=== PATIENT | female | born 1960 | race Hispanic/Latino ===

== ENCOUNTER 2017-03-07 11:44 | Inpatient (IN) | payer OTHER ==
--- NOTE | 2017-03-07 12:07 | ED PDOC ---
Arrival/HPI - General Chief Complaint: Abdominal Pain Time Seen by Provider: 03/07/17 12:07 Historian: Patient - History of Present Illness Narrative History of Present Illness (Text): 03/07/17 12:07 This 56 yo female presents to this ED c/o Epigastric pain, and elevated Lipase. Patient stated she has been having epigastric pain x 4 weeks. Pain has worsen last 3 days. Patient stated she had a normal CT scan Of abdomen and pelvis last week. Patient brought lab result from yesterday which shows Lipase at 922. Patient stated she was recommended to come to ED by her PMD for revaluation. Denies sob, cp, rectal; bleeding, rash, fever, or abnormal gait. PMD: Dr. Mayer Time/Duration: < month Quality: Aching Context: Home Past Medical History - Provider Review Nursing Documentation Reviewed: Yes - Reproductive Menopause: Yes - Endocrine/Metabolic Hx Hypothyroidism: Yes - Gastrointestinal Hx Gastrointestinal Ulcer: Yes Hx Irritable Bowel: Yes - Psychiatric Hx Substance Use: No - Surgical History Hx Orthopedic Surgery: Yes - Anesthesia Hx Anesthesia: Yes Hx Anesthesia Reactions: No Family/Social History - Physician Review Nursing Documentation Reviewed: Yes Family/Social History: No Known Family HX Smoking Status: Unknown If Ever Smoked Hx Alcohol Use: No Hx Substance Use: No Allergies/Home Meds Allergies/Adverse Reactions: Allergies No Known Allergies Allergy (Verified 03/07/17 11:56) Home Medications: Home Meds Medication Instructions Recorded Confirmed ALPRAZolam [Xanax] 1 mg PO TID 03/07/17 03/07/17 Conjugated Estrogens [Premarin] 0 mg PO 03/07/17 LORazepam [Ativan] 0.5 mg PO BID 03/07/17 03/07/17 LORazepam [Ativan] 1 mg PO HS 03/07/17 03/07/17 Levothyroxine [Synthroid] 50 mcg PO DAILY 03/07/17 03/07/17 Omeprazole 20 mg PO DAILY 03/07/17 03/07/17 Ondansetron HCl [Zofran] 4 mg PO PRN PRN 03/07/17 03/07/17 Temazepam [Restoril] 30 mg PO HS 03/07/17 03/07/17 Venlafaxine [Effexor XR] 150 mg PO DAILY 03/07/17 03/07/17 Review of Systems - Review of Systems Constitutional: Normal. absent: Fatigue, Weight Change, Fevers Eyes: Normal ENT: Normal Respiratory: Normal. absent: SOB, Cough, Sputum Cardiovascular: Normal Gastrointestinal: Abdominal Pain, Nausea Genitourinary Female: Normal Musculoskeletal: Normal Skin: Normal Neurological: Normal Endocrine: Normal Hemo/Lymphatic: Normal Psychiatric: Normal Physical Exam Vital Signs Temp Pulse Resp BP Pulse Ox 03/07/17 13:00 138/78 03/07/17 11:50 98.9 F 104 H 20 130/71 96 Temperature: Afebrile Blood Pressure: Normal Pulse: Regular Respiratory Rate: Normal Appearance: Positive for: Well-Appearing, Non-Toxic, Comfortable Pain Distress: None Mental Status: Positive for: Alert and Oriented X 3 - Systems Exam Head: Present: Atraumatic, Normocephalic Pupils: Present: PERRL Extroacular Muscles: Present: EOMI Conjunctiva: Present: Normal Mouth: Present: Moist Mucous Membranes Neck: Present: Normal Range of Motion Respiratory/Chest: Present: Clear to Auscultation, Good Air Exchange. No: Respiratory Distress, Accessory Muscle Use Cardiovascular: Present: Regular Rate and Rhythm, Normal S1, S2. No: Murmurs Abdomen: Present: Tenderness (Mild epigatric tenderness), Normal Bowel Sounds. No: Distention, Peritoneal Signs, Guarding, Hernias Back: Present: Normal Inspection. No: CVA Tenderness Upper Extremity: Present: Normal Inspection. No: Cyanosis, Edema Lower Extremity: Present: Normal Inspection. No: Edema Neurological: Present: GCS=15, CN II-XII Intact, Speech Normal Skin: Present: Warm, Dry, Normal Color. No: Rashes Psychiatric: Present: Alert, Oriented x 3 Medical Decision Making ED Course and Treatment: 03/07/17 15:37 I spoke with DAVI Bernard regarding elevated Lipase, and intractable abdominal pain. He agrees with plan for observation Re-evaluation Time: 15:37 Reassessment Condition: Re-examined, Improving,but remains with symptoms - Lab Interpretations Lab Results: 03/07/17 12:45 03/07/17 12:45 Lab Results 03/07/17 13:20: Urine Color Yellow, Urine Appearance Clear, Urine pH 6.5, Ur Specific [place] 1.025, Urine Protein Negative, Urine Glucose (UA) Negative, Urine Ketones Trace H, Urine Blood Negative, Urine Nitrate Negative, Urine Bilirubin Negative, Urine Urobilinogen 0.2, Ur Leukocyte Esterase Negative 03/07/17 12:45: WBC 6.0, RBC 4.44, Hgb 13.0, Hct 37.5, MCV 84.5, MCH 29.3, MCHC 34.7, RDW 12.3, Plt Count 255, MPV 8.8, Gran % 54.7, Lymph % (Auto) 33.9, [place] % (Auto) 7.2 H, Eos % (Auto) 3.5, Baso % (Auto) 0.7, Gran # 3.25, Lymph # 2.0, [place] # 0.4, Eos # 0.2, Baso # 0.04, PT 10.8, INR 1.00, APTT 27.1, Sodium 140, Potassium 4.4, Chloride 105, Carbon Dioxide 25, Anion Gap 14, BUN 11, Creatinine 0.7, Est GFR ( Amer) > 60, Est GFR (Non-Af Amer) > 60, Random Glucose 95, Calcium 9.8, Total Bilirubin 0.5, AST 20, ALT 23, Alkaline Phosphatase 53, Total Protein 7.6, Albumin 4.1, Globulin 3.6, Albumin/Globulin Ratio 1.1, Amylase 150 H, Lipase 727 H I have reviewed the lab results: Yes Interpretation: Abnormal lab values (Elevated Lipase) - RAD Interpretation Narrative RAD Interpretations (Text): 03/07/17 16:02 Accession No. : [id number] Patient Name / ID : CADEN AN / [id number] Exam Date : 03/07/2017 12:42:16 ( Approved ) Study Comment : Sex / Age : F / 56Y Creator : Nolan Gil MD Dictator : Nolan Gil MD [place] Supervisor : Emergency Dispatcher : Nolan Gil MD Approver2 : Report Date : 03/07/2017 15:00:59 My Comment : HISTORY: cough COMPARISON: No prior. FINDINGS: LUNGS: No active pulmonary disease. PLEURA: No significant pleural effusion identified, no pneumothorax apparent. CARDIOVASCULAR: Normal. OSSEOUS STRUCTURES: No significant abnormalities. VISUALIZED UPPER ABDOMEN: Normal. OTHER FINDINGS: None. IMPRESSION: No active disease. Radiology Orders: 03/07/17 12:26 CHEST PORTABLE [RAD] Stat - Medication Orders Current Medication Orders: Discontinued Medications Hydromorphone HCl (Dilaudid) 1 mg IVP STAT STA Stop: 03/07/17 15:13 Last Admin: 03/07/17 15:22 Dose: 1 MG IVP Administration Document 03/07/17 15:22 SF (Rec: 03/07/17 15:22 [email or web address] Charges for Administration # of IVP Administrations 1 Sodium Chloride (Sodium Chloride 0.9%) 1,000 mls @ 999 mls/hr IV .Q1H1M STA Stop: 03/07/17 13:28 Last Admin: 03/07/17 13:01 Dose: 999 MLS/HR eMAR Start Stop Document 03/07/17 13:01 SF (Rec: 03/07/17 13:01 [email or web address]) Intravenous Solution Start Date 03/07/17 Start Time 13:01 End Date 03/07/17 End time 14:02 Total Infusion Time 61 Famotidine (Pepcid 20mg/50ml Premix) 50 mls @ 100 mls/hr IVPB STAT STA Stop: 03/07/17 12:58 Last Admin: 03/07/17 13:00 Dose: 100 MLS/HR eMAR Start Stop Document 03/07/17 13:00 SF (Rec: 03/07/17 13:00 [email or web address]) Intravenous Solution Start Date 03/07/17 Start Time 13:00 End Date 03/07/17 End time 13:30 Total Infusion Time 30 Morphine Sulfate (Morphine) 4 mg IVP STAT STA Stop: 03/07/17 12:30 Last Admin: 03/07/17 13:01 Dose: 4 MG MAR Pain Assessment Document 03/07/17 13:01 SF (Rec: 03/07/17 13:01 [email or web address] Pain Reassessment Is this a pain reassessment? Yes Sleep Is patient sleeping during reassessment? No Presence of Pain Presence of Pain Yes Pain Scale Used Pain Scale Used Numeric IVP Administration Document 03/07/17 13:01 (Rec: 03/07/17 13:01 [email or web address]) Charges for Administration # of IVP Administrations 1 Ondansetron HCl (Zofran Inj) 4 mg IVP STAT STA Stop: 03/07/17 12:30 Last Admin: 03/07/17 13:01 Dose: 4 MG IVP Administration Document 03/07/17 13:01 (Rec: 03/07/17 13:01 [facility] Charges for Administration # of IVP Administrations 1 Disposition/Present on Arrival - Present on Arrival Any Indicators Present on Arrival: No History of DVT/PE: No History of Uncontrolled Diabetes: No Urinary Catheter: No History of Decub. Ulcer: No History Surgical Site Infection Following: None - Disposition Have Diagnosis and Disposition been Completed?: Yes Diagnosis: Pancreatitis, Intractable abdominal pain Disposition: HOSPITALIZED Disposition Time: 15:39 Patient Plan: Observation Patient Problems: Current Active Problems Problem Status Diagnosed Intractable abdominal pain Acute Pancreatitis Acute Condition: GOOD Referrals: PCP,NO [Primary Care Provider] - Follow up with primary
[2017-03-07] MEDS ORDERED: Sodium Chloride 0.9% 1,000 ML IV STA ×2 (12:28→16:09)
[2017-03-07] MEDS ORDERED: Morphine 4 mg/ml ISec IVP STA (12:29)
[2017-03-07] MEDS ORDERED: Famotidine 20mg/50ml 50 ML IVPB STA (12:29)
[2017-03-07 12:56] LABS: ADD MANUAL DIFF? NO
[2017-03-07 13:01] LABS: BASO # 0.04 K/mm3 (0.0-2.0); BASO % 0.7 % (0.0-3.0); EOS # 0.2 (0.0-0.7); EOS % 3.5 % (1.5-5.0); GRAN # 3.25 (1.4-6.5); GRAN % 54.7 % (50.0-68.0); HEMATOCRIT 37.5 % (36.0-48.0); LYMPH % 33.9 % (22.0-35.0); MEAN CELL VOLUME 84.5 fL (80.0-105.0); MEAN CORPUSCULAR HEMOGLOBIN 29.3 pg (25.0-35.0); MEAN CORPUSCULAR HGB CONC 34.7 g/dl (31.0-37.0); MEAN PLATELET VOLUME 8.8 fl (7.0-11.0); MONO # 0.4 (0.1-0.6); MONO % 7.2 % (1.0-6.0); PLATELET COUNT 255 10^3/uL (120.0-450.0); RED CELL DISTRIBUTION WIDTH 12.3 % (11.5-14.5)
[2017-03-07 13:12] LABS: PARTIAL THROMBOPLASTIN TIME 27.1 Seconds (23.7-30.8)
[2017-03-07 13:25] LABS: ALB/GLOB RATIO 1.1 (1.1-1.8); ALKALINE PHOSPHATASE 53 U/L (38-133); ALT/SGPT 23 U/L (7-56); AMYLASE 150 U/L (35-125); AST/SGOT 20 U/L (15-39); BILIRUBIN,TOTAL 0.5 mg/dL (0.2-1.3); BLOOD UREA NITROGEN 11 mg/dL (7-21); CALCIUM 9.8 mg/dL (8.4-10.5); CARBON DIOXIDE 25 mmol/L (21-33); CHLORIDE 105 mmol/L (98-107); GFR AFRICAN-AMERICAN > 60; GLUCOSE,RANDOM 95 mg/dL (70-110); LIPASE 727 U/L (23-300); POTASSIUM 4.4 mmol/L (3.6-5.0); SODIUM 140 mmol/L (132-148); TOTAL PROTEIN 7.6 g/dL (5.8-8.3)
[2017-03-07 13:31] LABS: PH,URINE 6.5 (4.7-8.0); URINE BILIRUBIN NEGATIVE (NEGATIVE); URINE BLOOD NEGATIVE (NEGATIVE); URINE GLUCOSE (UA) NEGATIVE (NEGATIVE); URINE KETONE TRACE mg/dL (NEGATIVE); URINE LEUKOCYTE ESTERASE NEGATIVE Leu/uL (NEGATIVE); URINE PROTEIN NEGATIVE mg/dL (<30 mg/dL); URINE UROBILINOGEN 0.2 E.U./dL (<1 E.U./dL)
[2017-03-07 13:32] LABS: URINE APPEARANCE CLEAR (CLEAR); URINE COLOR YELLOW (YELLOW)
--- NOTE | 2017-03-07 15:02 | RAD ---
HISTORY: cough COMPARISON: No prior. FINDINGS: LUNGS: No active pulmonary disease. PLEURA: No significant pleural effusion identified, no pneumothorax apparent. CARDIOVASCULAR: Normal. OSSEOUS STRUCTURES: No significant abnormalities. VISUALIZED UPPER ABDOMEN: Normal. OTHER FINDINGS: None. IMPRESSION: No active disease.
[2017-03-07] MEDS ORDERED: HYDROmorphone 1 mg/ml ISec IVP STA ×2 (15:12→22:47)
--- NOTE | 2017-03-07 17:46 | CARD ---
APPROVED REPORT EKG Measurement Heart [id number] <Conclusion> Normal sinus rhythm Normal ECG
[2017-03-07] MEDS: HYDROmorphone 0.5 mg/0.5 ml ISec IVP PRN (20:03)
[2017-03-07 22:18] VITALS: BMI 36.2
[2017-03-07] MEDS ORDERED: Pneumococcal 23-Valent Vaccine IM ONE (22:18)
--- NOTE | 2017-03-07 22:42 | CP.PCM.PN ---
Subjective - Date & Time of Evaluation Date of Evaluation: 03/07/17 Time of Evaluation: 22:41 - Subjective Subjective: S:Patient was seen at bedside because she complained of upper abdominal pain. She had received dilaudid 0.5 mg at 08:03PM.Had relief of pain initially, but pain came back.Pain is similar to pain she came in with. Pertinent medical record was reviewed. O: Last Vital Signs 3 Temp 98.9 F 03/07/17 21:53 Pulse 83 03/07/17 21:53 Resp 18 03/07/17 21:53 BP 113/73 03/07/17 21:53 Pulse Ox 100 03/07/17 17:58 Awake ,alert , not in distress. LUNGS:Normal breathing pattern. ABD:Soft , mild upper abdomen tenderness positive across abdomen. A/P Abdominal pain 2* to pancreatitis. Dilaudid 1 mg IV stat. Objective - Vital Signs/Intake and Output Vital Signs (last 24 hours): Temp Pulse Resp BP Pulse Ox 98.9 F 83 18 113/73 100 03/07/17 21:53 03/07/17 21:53 03/07/17 21:53 03/07/17 21:53 03/07/17 17:58 - Medications Medications: Current Medications Alprazolam (Xanax) 1 mg PO TID JOSE FRANCISCO PRN Reason: Protocol Hydromorphone HCl (Dilaudid) 0.5 mg IVP Q4H PRN PRN Reason: Pain, moderate (4-7) Last Admin: 03/07/17 20:03 Dose: 0.5 mg Sodium Chloride (Sodium Chloride 0.9%) 1,000 mls @ 100 mls/hr IV .Q10H STA Stop: 03/08/17 02:08 Last Admin: 03/07/17 16:32 Dose: 100 mls/hr Sodium Chloride (Sodium Chloride 0.9%) 1,000 mls @ 100 mls/hr IV .Q10H JOSE FRANCISCO Levothyroxine Sodium (Synthroid) 50 mcg PO ACB JOSE FRANCISCO Ondansetron HCl (Zofran Inj) 4 mg IVP Q4H PRN PRN Reason: Nausea/Vomiting Last Admin: 03/07/17 20:04 Dose: 4 mg Ondansetron HCl (Zofran Tab) 4 mg PO Q4H PRN PRN Reason: Nausea/Vomiting Pantoprazole Sodium (Protonix Ec Tab) 20 mg PO ACB JOSE FRANCISCO Quetiapine Fumarate (Seroquel) 50 mg PO HS JOSE FRANCISCO PRN Reason: Protocol Venlafaxine HCl (Effexor Xr) 150 mg PO DAILY JOSE FRANCISCO - Labs Labs: PT 10.8 Seconds (9.9-11.8) 03/07/17 12:45 INR 1.00 (0.93-1.08) 03/07/17 12:45 APTT 27.1 Seconds (23.7-30.8) 03/07/17 12:45
[2017-03-08] MEDS: HYDROmorphone 0.5 mg/0.5 ml ISec IVP PRN ×5 (02:26→21:20)
[2017-03-08 07:32] LABS: AMYLASE 245 U/L (35-125)
[2017-03-08 07:49] LABS: LIPASE 2326 U/L (23-300)
[2017-03-08] MEDS: Pantoprazole 20 mg EC Tab PO SCH (08:22)
[2017-03-08] MEDS: Levothyroxine 50 MCG TAB PO SCH (08:22)
[2017-03-08] MEDS: Venlafaxine 75 mg ER Cap PO SCH (09:27)
[2017-03-08] MEDS: Sodium Chloride 0.9% 1,000 ML IV SCH ×2 (09:50→23:26)
[2017-03-08] MEDS ORDERED: Non Formulary Medication (Venlafaxine [Effexor Xr] 150 MG) PO SCH (10:00)
[2017-03-08] MEDS ORDERED: Non Formulary Medication (Omeprazole [Omeprazole] 20 MG) PO SCH (10:00)
[2017-03-08] MEDS ORDERED: Levothyroxine 75 MCG TAB PO SCH (10:00)
--- NOTE | 2017-03-08 10:47 | CON ---
DATE: 03/08/2017 REQUESTING PHYSICIAN: Dr. Canelo Mayer. REASON FOR CONSULTATION: I have been asked to see this 56-year-old female with a history of hypothyr oidism, irritable bowel syndrome, chronic constipation, peptic ulcer disease, who comes [facility] with several weeks of worsening pain across her upper abdomen. Her abdominal pain has become more severe over the last 4 days. She had an outpatient CT scan of the abdomen and pelvis last week whic h, according to her primary care physician, was normal. The patient went to see her medical doctor s everal days ago and outpatient blood work revealed elevated amylase and lipase suggestive of pancreat itis. The patient underwent an MRCP yesterday after being admitted to the hospital and this was a no rmal exam with normal CBD, pancreatic duct and pancreas. She continues to complain of upper abdomina l pain with some nausea, but no vomiting. She has also had a loss of appetite and apparently an 18-p ound weight loss over the last several weeks due to poor oral intake. Her lipase this morning was in creased to 2326 with an amylase of 245. She is asking for increasingly frequent pain medications. PAST MEDICAL HISTORY: As above. Again, she has a history of hypothyroidism, irritable bowel syndrom e, peptic ulcer disease. HOME MEDICATIONS: Include alprazolam, lorazepam, Levoxyl, omeprazole, Restoril, Effexor and Premarin . SOCIAL HISTORY: She denies cigarette smoking or alcohol use. FAMILY HISTORY: Noncontributory. REVIEW OF SYSTEMS: A 14-point review of systems is notable for abdominal pain, lack of appetite and nausea. PHYSICAL EXAMINATION: GENERAL: Well-developed female lying in bed, appearing comfortable. VITAL SIGNS: Reveal temperature of 97.8, blood pressure, 107/68, heart rate 69. HEENT: Reveals sclerae to be white, conjunctivae pink. NECK: Supple. CHEST: Lungs are clear. HEART: Reveals a regular rate and rhythm. ABDOMEN: Soft. There is mild upper abdominal tenderness, some voluntary guarding, no rebound. EXTREMITIES: Show no edema. LABORATORY DATA: Reveal this morning, amylase 245, lipase 2326. AST, ALT, alk phos are all normal. Coags are normal. Hematology reveals normal CBC. IMPRESSION: A 56-year-old female with elevated amylase and lipase suggestive of acute pancreatitis; however, her imaging studies with CAT scan and MRI are normal. RECOMMENDATIONS: 1. I will ask Dr. Jessica to perform an endoscopic ultrasound for further evaluation of her pancrea s. This will be scheduled for later today. 2. Keep the patient n.p.o. 3. Continue pain medications and IV fluids. Nicola Hinds MD cc: [phone] TT: 03/08/2017 10:46:58 Confirmation # [id number] Dictation # [id number] tn
--- NOTE | 2017-03-08 11:00 | MRI ---
MRCP Indication: Pancreatitis Technique: Multiplanar, multisequence MR images of the abdomen were obtained, including heavily T2 weighted MRCP images of the biliary system. Rotating maximum intensity projection images of the biliary system were generated. A total of 625 images were submitted for review. Comparison: Abdominal ultrasound performed 07/27/16 Findings: The liver appears grossly unremarkable on this noncontrast examination. The gallbladder appears unremarkable. There is no intrahepatic biliary ductal dilatation. The common bile duct appears within normal limits in caliber and tapers distally. The pancreatic duct appears within normal limits of caliber. No filling defects are seen in the common bile duct or pancreatic duct. Too small to characterize 8 mm T2 hyperintense/T1 hypo intense left renal lesion, likely cyst. The included portions of the noncontrast adrenal glands, kidneys, spleen, and pancreas appear unremarkable. No bulky abdominal lymphadenopathy is seen. No ascites. No acute osseous abnormality is detected. Impression: No filling defects seen within the common bile duct which appears within normal limits of caliber. Too small to characterize 8 mm T2 hyperintense/T1 hypo intense left renal lesion, likely cyst. No MRI findings to suggest pancreatitis or its complications. Recommend correlation with amylase and lipase. Preliminary impression was provided by virtual radiologic.
[2017-03-08] MEDS ORDERED: Propofol 10 mg/ml Inj (20 ML) ONE ×2 (14:48→15:25)
[2017-03-08] MEDS ORDERED: Midazolam 2 MG/2 ML VIAL ONE (14:48)
--- NOTE | 2017-03-08 15:07 | CON ---
DATE: 03/08/2017 The patient was seen and examined at the bedside this afternoon. REQUEST FOR CONSULTATION: For endoscopic ultrasound. HISTORY OF PRESENT ILLNESS: This is a 56-year-old female with a past medical history of hypothyroidi sm, peptic ulcer disease and irritable bowel syndrome. The patient comes to the Emergency Room with complaints of several weeks of worsening pain across her upper abdomen. Her pain has become more sev ere the last 4 days. The patient had an outpatient CAT scan of the abdomen and pelvis last week, whi ch was reported to be normal, as per her PCP. The patient on outpatient blood work was noted to have elevated amylase and lipase suggestive of pancreatitis. The patient had an MRCP done yesterday, whi ch was negative for any filling defects in the common bile duct as well as the pancreatic duct and pa ncreas. The patient continues to have epigastric discomfort with nausea but no vomiting and her amyl ase, lipase are increased this morning and so requested for endoscopic ultrasound for further evaluat ion of this. She did have an upper endoscopy recently with Dr. Hinds for GERD with no acute findings. PAST MEDICAL HISTORY: As stated above, irritable bowel syndrome, chronic constipation, peptic ulcer disease, hypothyroidism, obesity. PAST SURGICAL HISTORY: Hysterectomy and hamstring repair. FAMILY HISTORY: Noncontributory at this time. SOCIAL HISTORY: Denies tobacco use, ETOH or substance abuse. ALLERGIES: No known drug allergies. MEDICATIONS: Reviewed as per MAR. REVIEW OF SYSTEMS: Systems reviewed with positive findings, see HPI. VITAL SIGNS: Temperature is 97.8, blood pressure is 107/68, pulse 69, respirations 20, 97% on room a ir. LABORATORIES: From 03/07 is sodium 140, K 4.4, BUN 11, creatinine 0.7. Her amylase today is 245. Li pase is 2326. WBC 6.0, H and H is 13.0 and 37.5, platelets is 255. PT is 10.8, INR is 1.00, PTT is 27.1. Urinalysis is negative for leukocyte esterase, there is a trace of ketones, negative protein, blood. She had a chest x-ray and that was negative for pleural effusion or pneumothorax, no active p ulmonary disease. The MRCP report was reviewed and it shows unremarkable, liver appears grossly unre markable, gallbladder is unremarkable. There is no intrahepatic biliary ductal dilatation. The comm on bile duct appears normal limits in caliber and tapers distally. Pancreatic duct appears normal li mits. No filling defects are seen in the common bile duct or pancreatic duct. There is a too small to characterize 8 mm T2 hyperintensity and T1 hypointense left renal lesion, likely a cyst. Adrenal glands, kidney, spleen and pancreas appear unremarkable. No bulky abdominal lymphadenopathy is seen, no ascites. PHYSICAL EXAMINATION: HEENT: Sclerae anicteric. NECK: Supple. CARDIAC: S1, S2. LUNG SOUNDS: Clear. ABDOMEN: With bowel sounds, soft, nondistended with positive epigastric, upper abdominal tenderness with some guarding, no rebound, no organomegaly. EXTREMITIES: Positive pedal pulses, no edema. NEUROLOGIC: Awake, alert, and oriented. ASSESSMENT: This is a 56-year-old female who came in with increasing abdominal pain. Her amylase an d lipase levels are elevated suggestive of acute pancreatitis. She did have an outpatient CT scan th at was reported to be normal and magnetic resonance cholangiopancreatography was done with no acute f indings. PLAN: The patient remains n.p.o. and is on IV fluids of normal saline at 100, is on gastrointestinal prophylaxis with 20 mg of Protonix, Zofran p.r.n., is on Dilaudid for pain and is planned for an end oscopic ultrasound this afternoon for further evaluation. Thank you for this consult and for allowing us to participate in your patient's care. We will make f urther recommendations based upon patient's clinical course. Sanjuanita GRIJALVA cc: [phone] TT: 03/08/2017 15:06:02 Confirmation # [id number] Dictation # [id number] en
[2017-03-08] MEDS ORDERED: Lactated Ringer's 1,000 ML IV SCH (16:45)
[2017-03-08 17:06] VITALS: RESP 20
--- NOTE | 2017-03-08 20:49 | HP ---
HISTORY OF PRESENT ILLNESS: The patient is a 56-year-old patient of Dr. Mayer, who was referred by Dr. Mayer to be admitted because she was having intermittent abdominal pain going on for a few weeks. Initially she thought the stomach itself would get better. Given this was happening for the last 3-4 weeks, but got worse in the last 3 days. She went to see Dr. Mayer, who ordered blood work and she was found to have a high amylase and lipase, so she was advised to come to the Emergency Room for further evaluation and workup. She also had a CT scan done as outpatient and was found to be normal. The patient had an MRCP done yesterday that was also negative with no occlusion of the bi le ducts; however, the patient continued to have epigastric discomfort, so she came to the ER. PAST MEDICAL HISTORY: Significant for 1. Irritable bowel syndrome. 2. Peptic ulcer disease. 3. Hypothyroidism. 4. Borderline obesity. 5. Chronic constipation. PAST SURGICAL HISTORY: Significant for hysterectomy and she had hamstring repair done a few years ag o. FAMILY HISTORY: Not relevant. SOCIAL HISTORY: Denies smoking, drinking, or alcohol use. ALLERGIES: She is not allergic to any medications. MEDICATIONS AT HOME: She is on Effexor 150 mg daily, Restoril 30 mg at bedtime, omeprazole 20 mg booker ly, levothyroxine 50 mcg daily, Ativan 0.5 bid and 1 mg at bedtime. She takes Premarin and Xanax as needed. SOCIAL HISTORY: She is . She used drink a lot, but quit. REVIEW OF SYSTEMS: Significant for abdominal discomfort, more so in the epigastric and right upper q uadrant. PHYSICAL EXAMINATION: GENERAL: The patient is awake and alert, communicative. Complained of feeling tired and thirsty and having headache, and now says she is hungry. VITAL SIGNS: She is afebrile, pulse 69, respirations 20, blood pressure 107/68. LUNGS: Bilateral fair airflow, no rhonchi or crackle. HEART: S1, S2 audible. ABDOMEN: Soft, positive epigastric and right upper quadrant discomfort. NEUROLOGIC: The patient is awake and alert, communicative. LABORATORY DATA: WBC 6.0, hemoglobin 13, hematocrit 37, platelets 255. PT 10.8, INR 1.0, PTT 27.1. Chemistry: Sodium 140, potassium 4.4, chloride 105, CO2 25, BUN 11, creatinine 0.7, blood sugar of 95. LFTs are within normal limits. On admission, amylase was 150, lipase 727. Followup is 54 and 245 and lipase is 2326. Urinalysis is unremarkable, MRCP is negative. ASSESSMENT: 1. Acute pancreatitis, etiology unknown. History of alcohol abuse. 2. Peptic ulcer disease. 3. Hypertension. 4. History of depression and anxiety. PLAN: The patient is currently n.p.o. She is going to have an ERCP and endoscopy done by Dr. Elmer montemayor. After that, she is requesting to at least start clear liquid diet and we will reevaluate the pat ient in a.m. Follow up on pancreatic enzymes and CMP in a.m. Maida Lara MD cc: [phone] TT: 03/08/2017 20:48:42 ln
--- NOTE | 2017-03-08 21:48 | CON ---
DATE: 03/08/2017 This is an addendum to the GI consultation report dictated by RUDI Rodríguez. The patient was seen and evaluated earlier. The MRI scan and ultrasound scan was reviewed. This 56- year-old patient admitted with acute pancreatitis, etiology is unclear. The patient's ultrasound sca n shows no gallstones, CBD was normal. MRCP was negative. The patient has a history of significantl y elevated triglyceride levels in the lab work done on 02/05/2017, triglyceride was 1304. The likely c ause in her case to be considered is hypertriglyceridemia. However, in view of this pancreatitis it is reasonable to consider endoscopic ultrasound to rule out a focal pancreatic lesion. The patient i s scheduled for endoscopic ultrasound. The risks, benefits, alternatives explained and informed cons ent was obtained. April Jessica MD cc: [phone] TT: 03/08/2017 21:47:32 Confirmation # [id number] Dictation # [id number] polo
[2017-03-09 07:13] LABS: ALKALINE PHOSPHATASE 53 U/L (38-133); ALT/SGPT 26 U/L (7-56); AMYLASE 260 U/L (35-125); AST/SGOT 18 U/L (15-39); BILIRUBIN,TOTAL 0.7 mg/dL (0.2-1.3); BLOOD UREA NITROGEN 6 mg/dL (7-21); CALCIUM 8.7 mg/dL (8.4-10.5); CARBON DIOXIDE 26 mmol/L (21-33); CHLORIDE 106 mmol/L (98-107); GFR AFRICAN-AMERICAN > 60; GLUCOSE,RANDOM 94 mg/dL (70-110); LIPASE 855 U/L (23-300); POTASSIUM 3.8 mmol/L (3.6-5.0); SODIUM 139 mmol/L (132-148)
[2017-03-09 07:18] LABS: HEMATOCRIT 35.7 % (36.0-48.0); MEAN CORPUSCULAR HEMOGLOBIN 28.9 pg (25.0-35.0); MEAN CORPUSCULAR HGB CONC 33.6 g/dl (31.0-37.0); MEAN PLATELET VOLUME 8.6 fl (7.0-11.0); RED CELL DISTRIBUTION WIDTH 12.5 % (11.5-14.5); WHITE BLOOD COUNT 10.5 10^3/ul (4.5-11.0)
[2017-03-09] MEDS: HYDROmorphone 0.5 mg/0.5 ml ISec IVP PRN ×4 (09:34→20:03)
[2017-03-09] MEDS: Pantoprazole 20 mg EC Tab PO SCH (09:36)
[2017-03-09] MEDS: Venlafaxine 75 mg ER Cap PO SCH (09:36)
[2017-03-09] MEDS: Levothyroxine 50 MCG TAB PO SCH (09:36)
--- NOTE | 2017-03-09 11:41 | PN ---
DATE: 03/09/2017 SUBJECTIVE: The patient is a 56-year-old, seen and examined, sitting in chair. She is on her clear liquid diet. She states her pain is better than yesterday. No nausea or vomiting. PHYSICAL EXAMINATION: VITAL SIGNS: She is afebrile, pulse 90, respirations 20, blood pressure 110/74. LUNGS: Bilateral fair airflow, no rhonchi or crackle. HEART: S1, S2 audible. ABDOMEN: Soft, nontender, no rebound, no guarding. NEUROLOGIC: The patient is awake and alert, communicative, ambulatory. LABORATORY EXAMINATION: WBC is 10.5, hemoglobin 12, hematocrit 35, platelets 207. Chemistry: Sodiu m 139, potassium 3.8, CO2 26, chloride 106, BUN 6, creatinine 0.7, blood sugar of 94. Her amylase is 260 and lipase has gone down from 2300-855. ASSESSMENT: 1. Acute pancreatitis. 2. Hypothyroidism. 3. Anxiety disorder. 4. Depression. PLAN: The patient had MRCP done that was unremarkable. ERCP was done that is only significant for ed garfield of ampulla, but no lesions seen. We will start patient on liquid diet. Continue on current medi cation. Will order for triglyceride, amylase and lipase in a.m. and we might have to start her on an ti-lipids and if depression continues to be stable, we can make discharge plan. Maida Lara MD cc: [phone] TT: 03/09/2017 11:40:38 Confirmation # [id number] Dictation # [id number] cecile
[2017-03-09] MEDS: Sodium Chloride 0.9% 1,000 ML IV SCH (19:57)
--- NOTE | 2017-03-10 00:04 | PN ---
DATE: 03/09/2017 SUBJECTIVE: This patient was seen and evaluated earlier today. The patient was very hungry and he w as now started on a clear liquid diet by Dr. Lara. His pain is slightly better. PHYSICAL EXAMINATION: VITAL SIGNS: Temperature is 97.8, pulse 50, blood pressure 127/67. HEENT: Atraumatic, anicteric. NECK: Supple. HEART: S1, S2 heard. LUNGS: Bilateral air entry present. ABDOMEN: Soft. There was tenderness present in the epigastric area. EXTREMITIES: No edema, no cyanosis. NEUROLOGIC: Alert, oriented. Moves all the extremities. LABORATORY DATA: Hemoglobin is 12, hematocrit 35.7, WBC is 10.5, platelets 207. Chemistry is essent ially unremarkable except the amylase is a gone up to 260 and lipase has come down to 855. IMPRESSION: This is a 56-year-old patient admitted with abdominal pain, acute pancreatitis. MRCP is negative for any etiology. CAT scan done in the past was also told to be negative. Ultrasound show ed no gallstones. The patient's triglycerides were over 1365, more than 1300 before. The likely cau se for her. The patient underwent an endoscopic ultrasound yesterday. Found to have normal common b ile duct. Pancreatitis was noticed. No focal pancreatic lesion noticed. I did have a detailed dis cussion with the patient and also the patient's partner before, yesterday, and today discussed the monica bansal again at length the importance of conservative management explained. The patient eventually ma y need to be treated for triglycerides. We will also repeat the triglyceride level. Thank you very much for allowing us to participate in the care of the patient. April Jessica MD cc: [phone] TT: 03/10/2017 00:03:40 Confirmation # [id number] Dictation # [id number] dalia
[2017-03-10] MEDS: Sodium Chloride 0.9% 1,000 ML IV SCH (05:34)
[2017-03-10] MEDS: Pantoprazole 40 mg EC Tab PO SCH (07:17)
[2017-03-10] MEDS: Levothyroxine 50 MCG TAB PO SCH (07:17)
[2017-03-10 07:35] LABS: AMYLASE 126 U/L (35-125); CHOLESTEROL 185 mg/dL (130-200); LIPASE 367 U/L (23-300)
[2017-03-10] MEDS: HYDROmorphone 0.5 mg/0.5 ml ISec IVP PRN ×4 (08:25→20:31)
[2017-03-10] MEDS: Venlafaxine 75 mg ER Cap PO SCH (09:04)
[2017-03-11] MEDS: Sodium Chloride 0.9% 1,000 ML IV SCH (00:48)
[2017-03-11] MEDS: Levothyroxine 50 MCG TAB PO SCH (06:42)
[2017-03-11] MEDS: Pantoprazole 40 mg EC Tab PO SCH (06:42)
[2017-03-11 06:48] LABS: ALKALINE PHOSPHATASE 52 U/L (38-133); ALT/SGPT 27 U/L (7-56); AMYLASE 95 U/L (35-125); AST/SGOT 24 U/L (15-39); BILIRUBIN,TOTAL 0.3 mg/dL (0.2-1.3); BLOOD UREA NITROGEN 5 mg/dL (7-21); CALCIUM 8.7 mg/dL (8.4-10.5); CARBON DIOXIDE 26 mmol/L (21-33); CHLORIDE 107 mmol/L (95-110); GFR AFRICAN-AMERICAN > 60; GLUCOSE,RANDOM 91 mg/dL (70-110); LIPASE 337 U/L (23-300); POTASSIUM 3.7 mmol/L (3.6-5.0); SODIUM 141 mmol/L (132-148); TOTAL PROTEIN 6.8 g/dL (5.8-8.3)
[2017-03-11 07:23] VITALS: BP 132/78; PULSE 92; TEMP 97.9; O2SAT 100
--- NOTE | 2017-03-11 09:04 | PN ---
DATE: 03/10/2017 SUBJECTIVE: This patient was seen and evaluated earlier. The patient's diet was advanced to soft di et. The patient did complain of some epigastric pain after eating. PHYSICAL EXAMINATION: VITAL SIGNS: Temperature is 97.8, pulse 80, blood pressure 127/73. HEENT: Atraumatic, anicteric. NECK: Supple. HEART: S1, S2 heard. LUNGS: Bilateral air entry present. ABDOMEN: Soft. There is mild tenderness present in the epigastric area. LABORATORY DATA: Hemoglobin of 12, hematocrit 35.7, WBC is 10.5, platelets 207. Chemistry is essent ially unremarkable. Triglycerides 167, once again, significantly different when compared to the trig lycerides done . Significant improvement of the lipase level, 367. Amylase is 126. Triglyceri alma rosa on 02/05/2017 was 1304, and today is 169. IMPRESSION: This is a 56-year-old patient admitted with abdominal pain and acute pancreatitis. MRCP was negative. The patient had an outpatient CT done. She underwent an endoscopic ultrasound which showed normal common bile ducts, pancreas shows lobularity and suggestive of acute pancreatitis. No focal lesion obviously noticed. Would recommend repeating enzymes, and continue the low fat diet. P resently the etiology is unclear. It was thought to be secondary to triglycerides, but the real conc bruce is the triglycerides done now. Repeat one was normal. The ideal thing in her situation is to cl ose clinical followup. She does not need further workup very soon, but the timing will be based on t he clinical course. As for the US, it did not show any obvious mass; however, there is the limitatio n of inflamed in the setting of the pancreas. We will continue to closely follow up her care a nd suggest further management based on the clinical course. April Jessica MD cc: [id number] TT: 03/11/2017 05:10:45 Confirmation # [id number] Dictation # [id number] polo
[2017-03-11] MEDS: Venlafaxine 75 mg ER Cap PO SCH (09:06)
--- NOTE | 2017-03-11 09:42 | DS ---
A 56-year-old white female admitted to the hospital with acute pancreatitis, hypertriglyceridemia, st atus post MRCP, status post endoscopic ultrasound. Her numbers have transitioned down. Her latest l ipase is 337, down from over 2200. The patient is tolerating her diet. Vital signs are stable. Tri glycerides are over . Case was discussed with the patient. She will also see her endocrinologi st and start a low-triglyceride diet and also medication to treat her triglycerides. She will stay o n a low carbohydrates, low sugar diet and we will advance her diet as tolerated. The patient will be discharged home in improved condition to be followed as an outpatient in 2 days for repeat amylase a nd lipase and lipid profile. FINAL DISCHARGE DIAGNOSES: Pancreatitis, hypertriglyceridemia. Canelo Mayer MD cc: [id number] TT: 03/11/2017 09:41:30 en
== END 2017-03-11 14:08 | disposition home or self-care (01) | DRG 440 ==
LOC: ED 11:44 → ERH 16:05 → 5RNO 18:31 → MERGE 03-08 12:00 → OBSVTOIN 03-08 12:00 → 5RNO 03-10 18:28
PROVIDERS: ADMIT Internal Medicine; ATTEND Internal Medicine
PROC: 0DJ08ZZ Inspection of Upper Intestinal Tract, Via Natural or Artificial Opening Endoscopic (ICD-10-PCS; principal; 2017-03-08 13:30)
PROC: BF47ZZZ Ultrasonography of Pancreas (ICD-10-PCS; 2017-03-08 13:30)
DX: K85.90 Acute pancreatitis without necrosis or infection, unspecified (principal); K27.9 Peptic ulcer, site unspecified, unspecified as acute or chronic, without hemorrhage or perforation; K29.50 Unspecified chronic gastritis without bleeding; E78.1 Pure hyperglyceridemia; I10 Essential (primary) hypertension; K59.09 Other constipation; F32.9 Major depressive disorder, single episode, unspecified; F41.9 Anxiety disorder, unspecified; E03.9 Hypothyroidism, unspecified; K58.9 Irritable bowel syndrome, unspecified; E66.9 Obesity, unspecified; Z68.36 Body mass index [BMI] 36.0-36.9, adult

== ENCOUNTER 2017-04-23 16:35 | Inpatient (IN) | payer OTHER ==
[2017-04-23 16:38] VITALS: BMI 35.4
[2017-04-23] MEDS ORDERED: Sodium Chloride 0.9% 1,000 ML IV STA (17:04)
[2017-04-23] MEDS ORDERED: Morphine 4 mg/ml ISec IVP STA (17:04)
--- NOTE | 2017-04-23 17:08 | ED PDOC ---
Arrival/HPI - General Chief Complaint: Abdominal Pain Time Seen by Provider: 04/23/17 17:04 Historian: Patient - History of Present Illness Narrative History of Present Illness (Text): 04/23/17 17:05 56yo female with PMHx of hypothyroid and pancreatitis who present with complaint of severe epigastric abdominal pain since this morning. States nausea started while she was in ED. Reports similar pain when she was treated for Pancreatitis in March. She denies vomiting, diarrhea, constipation, melena, hematemesis, fever, chills, sick contact, any other complaint. Past Medical History - Provider Review Nursing Documentation Reviewed: Yes - Infectious Disease Hx of Infectious Diseases: None - Cardiac Hx Cardiac Disorders: No - Pulmonary Hx Respiratory Disorders: No - Neurological Hx Neurological Disorder: No - HEENT Hx HEENT Disorder: Yes (WEARS RX GLASSES) - Renal Hx Renal Disorder: No - Endocrine/Metabolic Hx Endocrine Disorders: Yes Hx Hypothyroidism: Yes (BENIGN NEOPLASM OF THYROID GLAND) - Hematological/Oncological Hx Blood Disorders: No Hx Blood Transfusions: No - Integumentary Hx Dermatological Disorder: No - Musculoskeletal/Rheumatological Hx Musculoskeletal Disorders: No Hx Falls: No - Gastrointestinal Hx Gastrointestinal Disorders: Yes Hx Gastroesophageal Reflux: Yes Hx Irritable Bowel: Yes Hx Pancreatitis: Yes (03-07-17) - Genitourinary/Gynecological Hx Genitourinary Disorders: No - Psychiatric Hx Psychophysiologic Disorder: Yes Hx Anxiety: Yes Hx Depression: Yes Hx Substance Use: No - Surgical History Hx Hysterectomy: Yes Other/Comment: L sided hamstring repair. - Anesthesia Hx Anesthesia: Yes Hx Malignant Hyperthermia: No Family/Social History - Physician Review Nursing Documentation Reviewed: Yes Family/Social History: Unknown Family HX Smoking Status: Never Smoked Hx Alcohol Use: No (hx of ETOH) Hx Substance Use: No Allergies/Home Meds Allergies/Adverse Reactions: Allergies No Known Allergies Allergy (Verified 04/23/17 16:37) Home Medications: Home Meds Medication Instructions Recorded Confirmed ALPRAZolam [Xanax] 1 mg PO TID 03/07/17 04/23/17 Levothyroxine [Synthroid] 50 mcg PO DAILY 03/07/17 04/23/17 Omeprazole 20 mg PO DAILY 03/07/17 04/23/17 Temazepam [Restoril] 30 mg PO HS 03/07/17 04/23/17 Venlafaxine [Effexor XR] 150 mg PO DAILY 03/07/17 04/23/17 Review of Systems - Physician Review All systems were reviewed & negative as marked: Yes - Review of Systems Constitutional: Normal Eyes: Normal ENT: Normal Respiratory: Normal Cardiovascular: Normal Gastrointestinal: Abdominal Pain, Nausea. absent: Constipation, Diarrhea, Vomiting, Hematochezia, Hematemesis Genitourinary Female: Normal Musculoskeletal: Normal Skin: Normal Neurological: Normal Endocrine: Normal Hemo/Lymphatic: Normal Psychiatric: Normal Physical Exam Vital Signs Reviewed: Yes Vital Signs Temp Pulse Resp BP Pulse Ox 04/23/17 20:25 99 H 16 98 04/23/17 20:19 80 18 99 04/23/17 17:54 79 18 137/89 100 04/23/17 16:42 97.8 F 80 17 139/91 H 100 Temperature: Afebrile Blood Pressure: Normal Pulse: Regular Respiratory Rate: Normal Appearance: Positive for: Well-Appearing, Non-Toxic, Comfortable Pain Distress: None Mental Status: Positive for: Alert and Oriented X 3 - Systems Exam Head: Present: Atraumatic, Normocephalic Pupils: Present: PERRL Extroacular Muscles: Present: EOMI Conjunctiva: Present: Normal Mouth: Present: Moist Mucous Membranes Neck: Present: Normal Range of Motion Respiratory/Chest: Present: Clear to Auscultation, Good Air Exchange. No: Respiratory Distress, Accessory Muscle Use Cardiovascular: Present: Regular Rate and Rhythm, Normal S1, S2. No: Murmurs Abdomen: Present: Tenderness (Epigastric tenderness), Normal Bowel Sounds, Guarding, Other (soft). No: Distention, Peritoneal Signs, Rebound, McBurney's Point Tender, Rovsing's Sign Present Back: Present: Normal Inspection Upper Extremity: Present: Normal Inspection. No: Cyanosis, Edema Lower Extremity: Present: Normal Inspection. No: Edema Neurological: Present: GCS=15, CN II-XII Intact, Speech Normal Skin: Present: Warm, Dry, Normal Color. No: Rashes Psychiatric: Present: Alert, Oriented x 3, Normal Insight, Normal Concentration Medical Decision Making ED Course and Treatment: 04/23/17 19:10 PT presented to ED for stated history. Her pain was controlled in ED with medication, but on re evaluation she noted that her pain was coming back . Her Lipase was >4000. She was hydrated and admitted. She demlined history of alcohol use, but have history of hypertriglycemia, which could be the source of the Pancreatitis. Review of her chart indicated that she was seen and admitted here in March also for Pancreatitis. Case was DW Dr. Mayer and pt was admitted. Result and plan was DW the pt and she agreed. - Lab Interpretations Lab Results: 04/23/17 17:57 04/23/17 17:57 Lab Results 04/23/17 17:57: Sodium 136, Potassium 4.5, Chloride 102, Carbon Dioxide 26, Anion Gap 13, BUN 10, Creatinine 0.7, Est GFR ( Amer) > 60, Est GFR (Non- Af Amer) > 60, Random Glucose 96, Calcium 10.2, Total Bilirubin 0.6, AST 26, ALT 46, Alkaline Phosphatase 53, Total Protein 7.5, Albumin 4.4, Globulin 3.1, Albumin/Globulin Ratio 1.4, Lipase 4186 H 04/23/17 17:57: PT 10.9, INR 1.01, APTT 26.1 04/23/17 17:57: WBC 12.5 H, RBC 4.68, Hgb 14.0, Hct 40.5, MCV 86.5, MCH 29.9, MCHC 34.6, RDW 12.8, Plt Count 349, MPV 8.8, Gran % 80.2 H, Lymph % (Auto) 11.9 L, Latimer % (Auto) 7.5 H, Eos % (Auto) 0.2 L, Baso % (Auto) 0.2, Gran # 10.06 H, Lymph # 1.5, Latimer # 0.9 H, Eos # 0.0, Baso # 0.02 04/23/17 17:45: Urine Color Yellow, Urine Appearance Clear, Urine pH 7.5, Ur Specific Burton 1.020, Urine Protein Trace H, Urine Glucose (UA) Negative, Urine Ketones Negative, Urine Blood Negative, Urine Nitrate Negative, Urine Bilirubin Negative, Urine Urobilinogen 0.2, Ur Leukocyte Esterase Negative, Urine RBC Negative, Urine WBC 0 - 2, Ur Epithelial Cells 4 - 5, Amorphous Sediment Few, Urine Bacteria Many, Urine Other Uyeast - Medication Orders Current Medication Orders: Hydromorphone HCl (Dilaudid) 0.5 mg IVP Q4H PRN PRN Reason: Pain, moderate (4-7) Last Admin: 04/23/17 22:33 Dose: 0.5 mg Sodium Chloride (Sodium Chloride 0.9%) 1,000 mls @ 100 mls/hr IV .Q10H JOSE FRANCISCO Last Admin: 04/23/17 21:00 Dose: 100 mls/hr Pantoprazole Sodium (Protonix Inj) 40 mg IVP DAILY JOSE FRANCISCO Discontinued Medications Famotidine (Pepcid) 20 mg IVP STAT STA Stop: 04/23/17 17:05 Last Admin: 04/23/17 17:50 Dose: 20 mg Hydromorphone HCl (Dilaudid) 1 mg IVP STAT STA Stop: 04/23/17 18:55 Last Admin: 04/23/17 19:10 Dose: 1 mg Hydromorphone HCl (Dilaudid) 1 mg IVP STAT STA Stop: 04/23/17 23:25 Last Admin: 04/23/17 23:35 Dose: 1 mg Sodium Chloride (Sodium Chloride 0.9%) 1,000 mls @ 1,000 mls/hr IV .Q1H STA Stop: 04/23/17 18:03 Last Admin: 04/23/17 17:50 Dose: 1,000 mls/hr Morphine Sulfate (Morphine) 4 mg IVP STAT STA Stop: 04/23/17 17:05 Last Admin: 04/23/17 17:50 Dose: 4 mg Ondansetron HCl (Zofran Inj) 4 mg IVP STAT STA Stop: 04/23/17 17:05 Last Admin: 04/23/17 17:50 Dose: 4 mg Disposition/Present on Arrival - Present on Arrival Any Indicators Present on Arrival: No History of DVT/PE: No History of Uncontrolled Diabetes: No Urinary Catheter: No History of Decub. Ulcer: No History Surgical Site Infection Following: None - Disposition Have Diagnosis and Disposition been Completed?: Yes Diagnosis: Pancreatitis, Intractable abdominal pain Disposition: HOSPITALIZED Disposition Time: 18:50 Patient Problems: Current Active Problems Problem Status Onset Intractable abdominal pain Acute Pancreatitis Acute Condition: FAIR
[2017-04-23 18:06] LABS: ADD MANUAL DIFF? NO
[2017-04-23 18:13] LABS: PH,URINE 7.5 (4.7-8.0); URINE BILIRUBIN NEGATIVE (NEGATIVE); URINE BLOOD NEGATIVE (NEGATIVE); URINE GLUCOSE (UA) NEGATIVE (NEGATIVE); URINE KETONE NEGATIVE (NEGATIVE); URINE LEUKOCYTE ESTERASE NEGATIVE Leu/uL (NEGATIVE); URINE PROTEIN TRACE mg/dL (<30 mg/dL); URINE UROBILINOGEN 0.2 E.U./dL (<1 E.U./dL)
[2017-04-23 18:14] LABS: GRAN % 80.2 % (50.0-68.0); HEMATOCRIT 40.5 % (36.0-48.0); LYMPH % 11.9 % (22.0-35.0); MEAN CELL VOLUME 86.5 fL (80.0-105.0); MEAN CORPUSCULAR HEMOGLOBIN 29.9 pg (25.0-35.0); MEAN CORPUSCULAR HGB CONC 34.6 g/dl (31.0-37.0); MEAN PLATELET VOLUME 8.8 fl (7.0-11.0); PLATELET COUNT 349 10^3/uL (120.0-450.0); RED CELL DISTRIBUTION WIDTH 12.8 % (11.5-14.5); WHITE BLOOD COUNT 12.5 10^3/ul (4.5-11.0)
[2017-04-23 18:15] LABS: BASO # 0.02 K/mm3 (0.0-2.0); BASO % 0.2 % (0.0-3.0); EOS % 0.2 % (1.5-5.0); GRAN # 10.06 (1.4-6.5); LYMPH # 1.5 (1.2-3.4); MONO # 0.9 (0.1-0.6); MONO % 7.5 % (1.0-6.0)
[2017-04-23 18:17] LABS: URINE APPEARANCE CLEAR (CLEAR); URINE COLOR YELLOW (YELLOW)
[2017-04-23 18:21] LABS: URINE RBC NEGATIVE /hpf (0-2); URINE WBC 0 - 2 /hpf (0-6)
[2017-04-23 18:22] LABS: URINE AMORPHOUS SEDIMENT FEW; URINE BACTERIA MANY (NEG)
[2017-04-23 18:23] LABS: ALB/GLOB RATIO 1.4 (1.1-1.8); ALKALINE PHOSPHATASE 53 U/L (38-133); ALT/SGPT 46 U/L (7-56); AST/SGOT 26 U/L (15-39); BILIRUBIN,TOTAL 0.6 mg/dL (0.2-1.3); BLOOD UREA NITROGEN 10 mg/dL (7-21); CALCIUM 10.2 mg/dL (8.4-10.5); CARBON DIOXIDE 26 mmol/L (21-33); CHLORIDE 102 mmol/L (98-107); GFR AFRICAN-AMERICAN > 60; GLUCOSE,RANDOM 96 mg/dL (70-110); INR 1.01 (0.93-1.08); PARTIAL THROMBOPLASTIN TIME 26.1 Seconds (23.7-30.8); POTASSIUM 4.5 mmol/L (3.6-5.0); SODIUM 136 mmol/L (132-148); TOTAL PROTEIN 7.5 g/dL (5.8-8.3)
[2017-04-23 18:40] LABS: LIPASE 4186 U/L (23-300)
[2017-04-23] MEDS ORDERED: HYDROmorphone 1 mg/ml ISec IVP STA ×2 (18:54→23:24)
[2017-04-23] MEDS ORDERED: Sodium Chloride 0.9% 1,000 ML IV SCH (20:45)
[2017-04-23] MEDS: HYDROmorphone 0.5 mg/0.5 ml ISec IVP PRN (22:33)
[2017-04-24] MEDS: HYDROmorphone 0.5 mg/0.5 ml ISec IVP PRN ×4 (06:27→22:03)
[2017-04-24 07:20] LABS: ALB/GLOB RATIO 1.2 (1.1-1.8); ALKALINE PHOSPHATASE 46 U/L (38-133); ALT/SGPT 36 U/L (7-56); AST/SGOT 22 U/L (15-39); BILIRUBIN,TOTAL 0.4 mg/dL (0.2-1.3); BLOOD UREA NITROGEN 7 mg/dL (7-21); CALCIUM 8.6 mg/dL (8.4-10.5); CARBON DIOXIDE 26 mmol/L (21-33); CHLORIDE 103 mmol/L (95-110); CHOLESTEROL 136 mg/dL (130-200); GFR AFRICAN-AMERICAN > 60; GLUCOSE,RANDOM 121 mg/dL (70-110); LIPASE 1492 U/L (23-300); POTASSIUM 4.1 mmol/L (3.6-5.0); SODIUM 134 mmol/L (132-148); TOTAL PROTEIN 6.6 g/dL (5.8-8.3)
[2017-04-24] MEDS: Sodium Chloride 0.9% 1,000 ML IV SCH (08:54)
--- NOTE | 2017-04-24 09:31 | RAD ---
HISTORY: admission COMPARISON: 03/07/2017 FINDINGS: LUNGS: No active pulmonary disease. PLEURA: No significant pleural effusion identified, no pneumothorax apparent. CARDIOVASCULAR: Normal. OSSEOUS STRUCTURES: No significant abnormalities. VISUALIZED UPPER ABDOMEN: Normal. OTHER FINDINGS: None. IMPRESSION: No active disease.
[2017-04-24] MEDS: Levothyroxine 50 MCG TAB PO SCH (09:57)
--- NOTE | 2017-04-24 10:30 | CP.PCM.CON ---
<Kelly Donahue - Last Filed: 04/24/17 10:24> History of Present Illness - History of Present Illness History of Present Illness: GI consult for Dr. Jessica 56yo female with PMHx of hypothyroid and pancreatitis who present with complaint of severe epigastric abdominal pain. States nausea started while she was in ED. Reports similar pain when she was treated for Pancreatitis in March. She denies vomiting, diarrhea, constipation, melena, hematemesis, fever, chills , sick contact, any other complaint. Pt was sent home in March she felt fine for a while and pain started again this time. MRCP in March was normal. EUS showed acute pancreatitis at that time. Lipase this time was 4000 and went down today. Review of Systems - Review of Systems Review of Systems: See HPI Past Patient History - Infectious Disease Hx of Infectious Diseases: None - Past Social History Smoking Status: Never Smoked - CARDIAC Hx Cardiac Disorders: No - PULMONARY Hx Respiratory Disorders: No - NEUROLOGICAL Hx Neurological Disorder: No - HEENT Hx HEENT Problems: Yes (WEARS RX GLASSES) - RENAL Hx Chronic Kidney Disease: No - ENDOCRINE/METABOLIC Hx Endocrine Disorders: Yes Hx Hypothyroidism: Yes (BENIGN NEOPLASM OF THYROID GLAND) - HEMATOLOGICAL/ONCOLOGICAL Hx Blood Disorders: No - INTEGUMENTARY Hx Dermatological Problems: No - MUSCULOSKELETAL/RHEUMATOLOGICAL Hx Musculoskeletal Disorders: No Hx Falls: No - GASTROINTESTINAL Hx Gastrointestinal Disorders: Yes Hx Gastroesophageal Reflux: Yes Hx Pancreatitis: Yes (03-07-17) - GENITOURINARY/GYNECOLOGICAL Hx Genitourinary Disorders: No - PSYCHIATRIC Hx Psychophysiologic Disorder: Yes Hx Anxiety: Yes Hx Depression: Yes - SURGICAL HISTORY Hx Hysterectomy: Yes Other/Comment: L sided hamstring repair. - ANESTHESIA Hx Anesthesia: Yes Hx Malignant Hyperthermia: No Meds Allergies/Adverse Reactions: Allergies Allergy/AdvReac Type Severity Reaction Status Date / Time No Known Allergies Allergy Verified 04/23/17 16:37 - Medications Medications: Current Medications Alprazolam (Xanax) 1 mg PO TID JOSE FRANCISCO PRN Reason: Protocol Last Admin: 04/24/17 09:57 Dose: Not Given Hydromorphone HCl (Dilaudid) 0.5 mg IVP Q4H PRN PRN Reason: Pain, moderate (4-7) Last Admin: 04/24/17 06:27 Dose: 0.5 mg Sodium Chloride (Sodium Chloride 0.9%) 1,000 mls @ 150 mls/hr IV .Q6H40M [facility] Last Admin: 04/24/17 08:54 Dose: 150 mls/hr Levothyroxine Sodium (Synthroid) 50 mcg PO DAILY [facility] Last Admin: 04/24/17 09:57 Dose: Not Given Temazepam [Restoril] (30 Mg (Home Med)) 30 mg PO [facility] Ondansetron HCl (Zofran Inj) 4 mg IVP Q4H PRN PRN Reason: Nausea/Vomiting Last Admin: 04/24/17 09:51 Dose: 4 mg Pantoprazole Sodium (Protonix Inj) 40 mg IVP DAILY [facility] Last Admin: 04/24/17 09:51 Dose: 40 mg Venlafaxine HCl (Effexor Xr) 150 mg PO DAILY [facility] Physical Exam - Constitutional Appears: No Acute Distress - Head Exam Head Exam: ATRAUMATIC, NORMAL INSPECTION, NORMOCEPHALIC - Eye Exam Eye Exam: EOMI, Normal appearance, PERRL Pupil Exam: NORMAL ACCOMODATION, PERRL - ENT Exam ENT Exam: Mucous Membranes Moist, Normal Exam - Neck Exam Neck exam: Positive for: Normal Inspection - Respiratory Exam Respiratory Exam: Clear to Auscultation Bilateral, NORMAL BREATHING PATTERN - Cardiovascular Exam Cardiovascular Exam: REGULAR RHYTHM - GI/Abdominal Exam GI & Abdominal Exam: Normal Bowel Sounds, Soft, Tenderness. absent: Distended, Firm, Guarding, Hernia Additional comments: Epigatric TTP. - Extremities Exam Extremities exam: Positive for: normal inspection - Back Exam Back exam: NORMAL INSPECTION - Neurological Exam Neurological exam: Alert, CN II-XII Intact, Normal Gait, Oriented x3, Reflexes Normal - Psychiatric Exam Psychiatric exam: Normal Affect, Normal Mood - Skin Skin Exam: Dry, Intact, Normal Color, Warm Results - Vital Signs Recent Vital Signs: Last Vital Signs Temp 97.6 F 04/24/17 09:17 Pulse 73 04/24/17 09:17 Resp 20 04/24/17 09:17 BP 128/85 04/24/17 09:17 Pulse Ox 98 04/24/17 09:17 - Labs Result Diagrams: 04/23/17 17:57 04/24/17 06:45 Labs: Laboratory Results - last 24 hr 04/24/17 06:45 Sodium 134 Potassium 4.1 Chloride 103 Carbon Dioxide 26 Anion Gap 9 L BUN 7 Creatinine 0.7 Est GFR ( Amer) > 60 Est GFR (Non-Af Amer) > 60 Random Glucose 121 H Calcium 8.6 Total Bilirubin 0.4 AST 22 ALT 36 Alkaline Phosphatase 46 Total Protein 6.6 Albumin 3.7 Globulin 3.0 Albumin/Globulin Ratio 1.2 Triglycerides 93 Cholesterol 136 LDL Cholesterol Direct 87 HDL Cholesterol 31 Lipase 1492 H Assessment & Plan - Assessment and Plan (Free Text) Assessment: Acute on chronic pancreatitis Lipase 4000, down today EUS: Pancreatitis MRCP: Normal -Triglyceride ordered -CT pancreatic protocol tomorrow. MRCP was done in March -NPO icechips ok -IVF @150 -Nausea control DW Dr. Jessica <April Jessica V - Last Filed: 06/12/17 14:46> Results - Vital Signs Recent Vital Signs: Last Vital Signs Temp 98.8 F 04/25/17 16:00 Pulse 92 H 04/25/17 16:00 Resp 20 04/25/17 16:00 BP 118/80 04/25/17 16:00 Pulse Ox 98 04/25/17 16:00 - Labs Result Diagrams: 04/25/17 07:30 04/24/17 06:45 Assessment & Plan - Assessment and Plan (Free Text) Assessment: See dictated consult addendum for this patient
--- NOTE | 2017-04-24 11:42 | HP ---
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 The patient had recently, on last admission, had an endoscopic ultrasound and MRCP - all negative. Was found to have ____ triglycerides of 1300. She has been on triglyceride medications at home and a low fat diet; she has done well. When she de veloped severe nausea and vomiting and abdominal pain radiating to the back, was found to have amylas e of over 4000 in the ER. The patient was admitted, kept n.p.o., put on PPIs and hydration, morphine and Zofran. The patient today, while the platelet count has dropped, the lipase has dropped from 40 00 to 1400. The patient is feeling somewhat better; less nausea and vomiting, less abdominal discomf ort. PHYSICAL EXAMINATION: GENERAL: Shows a well-developed but obese white female in minimal distress. HEENT: Essentially normal limits. HEART: Regular sinus rhythm. No S3 or murmur. ABDOMEN: Obese, nondistended, hyperactive bowel sounds. Minimally tender in midepigastric area. Th ere is no Howell's sign. EXTREMITIES: Without cyanosis, clubbing or edema. NEUROLOGIC: Grossly intact. IMPRESSION: A 56-year-old white female presenting with pancreatitis of unknown etiology, history of hypertriglyceridemia, rule out gallstone pancreatitis, rule out alcoholic pancreatitis - the patient is a reformed alcoholic - does not use alcohol. Tox screen is pending. PLAN: For possible MRCP versus CT of the abdomen. Discussion with Dr. Jessica. Canelo Mayer MD cc: [id number] TT: 04/24/2017 11:41:54 kishan
[2017-04-24] MEDS: Venlafaxine 75 mg ER Cap PO SCH (11:56)
[2017-04-24] MEDS ORDERED: Temazepam [Restoril] 30 MG (HOME MED) PO SCH (22:00)
--- NOTE | 2017-04-25 01:23 | CON ---
DATE: 04/24/2017 ADDENDUM: To consult of Dr. Donahue SUBJECTIVE: This patient was seen and evaluated earlier today. Discussed with Dr. Mayer. The patient does have a mild tenderness in the epigastric area. This is the second admission in the hospital for acute pancreatitis. At this time, a lipase level appears to be much higher than before. The patient mentioned to me that she was doing very good from the time of last discharge until this admission. I also discussed in detail with Dr. Mayer, his lab work was repeated as an outpatient and it was unremarkable. The etiology for pancreatitis is unclear. ASSESSMENT: When the patient recovered, it rules out as an etiology. DIAGNOSTIC STUDIES: The patient did have an MRCP done and, during the last admission, did not reveal any or focal pancreatic lesion. The patient also had an MRI done, which was also negative to find out the etiology. The patient did have an ultrasound done in 07/2016, which did not have any stones. The patient had a CAT scan as an outpatient. PLAN: The plan is to consider IV hydration and consider pancreatic protocol CT. We will also repeat the ultrasound scan. The patient may need further evaluation after reviewing the above workup, including referral to a pancreatic center. Thank you very much for allowing us to participate in the care of the patient. We will continue to closely follow up his care based on the clinical course. This is an addendum to the GI consultation report dictated by Sanjuanita Strickland NP. April Jessica MD cc: [id number] TT: 04/25/2017 01:21:57 Confirmation # [id number] Dictation # [id number] [email or web address]
[2017-04-25] MEDS: Sodium Chloride 0.9% 1,000 ML IV SCH ×2 (02:23→09:00)
[2017-04-25 07:36] LABS: ADD MANUAL DIFF? NO
[2017-04-25 07:43] LABS: BASO # 0.03 K/mm3 (0.0-2.0); BASO % 0.4 % (0.0-3.0); EOS # 0.1 (0.0-0.7); EOS % 1.6 % (1.5-5.0); GRAN # 5.17 (1.4-6.5); GRAN % 67.1 % (50.0-68.0); HEMATOCRIT 36.8 % (36.0-48.0); LYMPH # 1.7 (1.2-3.4); LYMPH % 22.2 % (22.0-35.0); MEAN CELL VOLUME 88.2 fL (80.0-105.0); MEAN CORPUSCULAR HGB CONC 32.9 g/dl (31.0-37.0); MEAN PLATELET VOLUME 8.7 fl (7.0-11.0); MONO # 0.7 (0.1-0.6); MONO % 8.7 % (1.0-6.0); PLATELET COUNT 261 10^3/uL (120.0-450.0); RED CELL DISTRIBUTION WIDTH 13.1 % (11.5-14.5); WHITE BLOOD COUNT 7.7 10^3/ul (4.5-11.0)
[2017-04-25 07:59] LABS: LIPASE 384 U/L (23-300)
[2017-04-25] MEDS: HYDROmorphone 0.5 mg/0.5 ml ISec IVP PRN ×2 (09:32→14:35)
[2017-04-25] MEDS: Levothyroxine 50 MCG TAB PO SCH (09:34)
[2017-04-25] MEDS: Venlafaxine 75 mg ER Cap PO SCH (09:34)
[2017-04-25 09:39] VITALS: RESP 20
[2017-04-25] MEDS ORDERED: Iohexol 240 (50 ml) ONE (13:01)
--- NOTE | 2017-04-25 14:08 | CP.PCM.PN ---
Subjective - Date & Time of Evaluation Date of Evaluation: 04/25/17 Time of Evaluation: 14:04 - Subjective Subjective: GI for Dr. Jessica Pt s&e. YOKOEALLY. Denies F/C/N/V/D. Pain controlled. Pt has good appetite. +amb, + void Objective - Vital Signs/Intake and Output Vital Signs (last 24 hours): Temp Pulse Resp BP Pulse Ox 98.6 F 81 20 120/68 97 04/25/17 08:00 04/25/17 08:00 04/25/17 08:00 04/25/17 08:00 04/25/17 08:00 Intake and Output: 04/25/17 04/25/17 06:59 18:59 Intake Total 0 Balance 0 - Medications Medications: Current Medications Alprazolam (Xanax) 1 mg PO TID [facility] PRN Reason: Protocol Last Admin: 04/25/17 09:33 Dose: 1 mg Hydromorphone HCl (Dilaudid) 0.5 mg IVP Q4H PRN PRN Reason: Pain, moderate (4-7) Last Admin: 04/25/17 09:32 Dose: 0.5 mg Sodium Chloride (Sodium Chloride 0.9%) 1,000 mls @ 150 mls/hr IV .Q6H40M [facility] Last Admin: 04/25/17 09:00 Dose: 150 mls/hr Levothyroxine Sodium (Synthroid) 50 mcg PO DAILY [facility] Last Admin: 04/25/17 09:34 Dose: 50 mcg Temazepam [Restoril] (30 Mg (Home Med)) 30 mg PO HS [facility] Last Admin: 04/25/17 02:23 Dose: Not Given Ondansetron HCl (Zofran Inj) 4 mg IVP Q4H PRN PRN Reason: Nausea/Vomiting Last Admin: 04/24/17 14:08 Dose: 4 mg Pantoprazole Sodium (Protonix Inj) 40 mg IVP DAILY [facility] Last Admin: 04/25/17 09:33 Dose: 40 mg Venlafaxine HCl (Effexor Xr) 150 mg PO DAILY [facility] Last Admin: 04/25/17 09:34 Dose: 150 mg - Labs Labs: 04/25/17 07:30 04/24/17 06:45 PT 10.9 Seconds (9.9-11.8) 04/23/17 17:57 INR 1.01 (0.93-1.08) 04/23/17 17:57 APTT 26.1 Seconds (23.7-30.8) 04/23/17 17:57 - Constitutional Appears: No Acute Distress - Head Exam Head Exam: ATRAUMATIC, NORMAL INSPECTION, NORMOCEPHALIC - Eye Exam Eye Exam: EOMI, Normal appearance, PERRL Pupil Exam: NORMAL ACCOMODATION, PERRL - ENT Exam ENT Exam: Mucous Membranes Moist, Normal Exam - Neck Exam Neck Exam: Full ROM, Normal Inspection. absent: Lymphadenopathy - Respiratory Exam Respiratory Exam: Clear to Ausculation Bilateral, NORMAL BREATHING PATTERN - Cardiovascular Exam Cardiovascular Exam: REGULAR RHYTHM, +S1, +S2. absent: Murmur - GI/Abdominal Exam GI & Abdominal Exam: Soft, Tenderness, Normal Bowel Sounds. absent: Distended, Firm, Guarding Additional comments: Epigastric TTP - Extremities Exam Extremities Exam: Full ROM, Normal Inspection - Back Exam Back Exam: NORMAL INSPECTION - Neurological Exam Neurological Exam: Alert, Awake, CN II-XII Intact, Normal Gait, Oriented x3 - Psychiatric Exam Psychiatric exam: Normal Affect, Normal Mood - Skin Skin Exam: Dry, Intact, Normal Color, Warm Assessment and Plan - Assessment and Plan (Free Text) Assessment: Acute on chronic pancreatitis Lipase trending down Trigliceride, lipid panel : wnl EUS: Pancreatitis MRCP: Normal -f/u CT pancreatic protocol and repeate US. MRCP was done in March -Diet pending CT and US result. -IVF @150 -Nausea control DW Dr. Jessica
--- NOTE | 2017-04-25 15:27 | US ---
HISTORY: Acute pancreatitis. COMPARISON: 07/27/2016. Abdominal ultrasound TECHNIQUE: Sonographic evaluation of the abdomen. FINDINGS: LIVER: Measures 14.7 cm. Patent portal vein. Portal venous flow: Hepatopetal. Unremarkeable echogenicity of the liver parenchyma. No mass. No intrahepatic bile duct dilatation. GALLBLADDER: Unremarkable. No gallstones. COMMON BILE DUCT: Measures 5.4 mm. No stones. No dilatation. PANCREAS: Unremarkable as visualized. No mass. No ductal dilatation. RIGHT KIDNEY: Measures 5.3 x 10.9cm. Normal echogenicity. No calculus, mass, or hydronephrosis. LEFT KIDNEY: Measures 5.0 x 12.4cm. Normal echogenicity. No calculus, mass, or hydronephrosis.Incidental finding(s): Simple cyst 9 mm upper pole. SPLEEN: Normal in size and contour. No mass. AORTA: No aneurysmal dilatation. IVC: Unremarkable. OTHER FINDINGS: None. IMPRESSION: No significant or acute findings to account for/ related to the clinical presentation. No significant interval change compared to the prior examination(s).
--- NOTE | 2017-04-25 16:09 | CT ---
PROCEDURE: CT Abdomen with and without intravenous contrast HISTORY: w/ IV PO contrast. r/o cholecystitis, gallstones COMPARISON: None. TECHNIQUE: Axial images of the abdomen were obtained in the pre contrast, portal venous and delayed phases of enhancement. Coronal and sagittal reformats were generated. Contrast dose: 150 cc of Omni 350 Radiation dose: Total exam DLP = 2384 mGy-cm. This CT exam was performed using one or more of the following dose reduction techniques: Automated exposure control, adjustment of the mA and/or kV according to patient size, and/or use of iterative reconstruction technique. FINDINGS: LOWER THORAX: Unremarkable. LIVER: Unremarkable. No gross lesion or ductal dilatation. GALLBLADDER AND BILE DUCTS: Unremarkable. PANCREAS: There is mild enlargement of the head of the pancreas. There is minimal fluid in inflammation in the adjacent anterior para renal space. The body and tail of the pancreas are unremarkable. SPLEEN: Unremarkable. ADRENALS: Unremarkable. No mass. KIDNEYS AND URETERS: Unremarkable. No hydronephrosis. No solid mass. VASCULATURE: Unremarkable. No aortic aneurysm. BOWEL: Unremarkable. No obstruction. No gross mural thickening. APPENDIX: Normal appendix. PERITONEUM: Unremarkable. No free fluid. No free air. LYMPH NODES: Unremarkable. No enlarged lymph nodes. BONES: No acute fracture. OTHER FINDINGS: None. IMPRESSION: Mild enlargement of the pancreatic head with mild adjacent inflammatory changes consistent with pancreatitis
--- NOTE | 2017-04-25 16:35 | CP.PCM.PN ---
<ZacariasAlejandro - Last Filed: 04/25/17 16:30> Subjective - Date & Time of Evaluation Date of Evaluation: 04/25/17 Time of Evaluation: 09:00 - Subjective Subjective: Medicine Progress note. Dr. Gilbert Pt seen and examined at bedside. No acute events overnight. Pain better tolerated. No N/V/D. Abd pain improved compared to yesterday. Tolerating soft diet. Resting comfortably in bed. Objective - Vital Signs/Intake and Output Vital Signs (last 24 hours): Temp Pulse Resp BP Pulse Ox 98.6 F 81 20 120/68 97 04/25/17 08:00 04/25/17 08:00 04/25/17 08:00 04/25/17 08:00 04/25/17 08:00 Intake and Output: 04/25/17 04/25/17 06:59 18:59 Intake Total 0 Balance 0 - Medications Medications: Current Medications Alprazolam (Xanax) 1 mg PO TID [facility] PRN Reason: Protocol Last Admin: 04/25/17 14:37 Dose: Not Given Hydromorphone HCl (Dilaudid) 0.5 mg IVP Q4H PRN PRN Reason: Pain, moderate (4-7) Last Admin: 04/25/17 14:35 Dose: 0.5 mg Sodium Chloride (Sodium Chloride 0.9%) 1,000 mls @ 150 mls/hr IV .Q6H40M [facility] Last Admin: 04/25/17 09:00 Dose: 150 mls/hr Levothyroxine Sodium (Synthroid) 50 mcg PO DAILY [facility] Last Admin: 04/25/17 09:34 Dose: 50 mcg Temazepam [Restoril] (30 Mg (Home Med)) 30 mg PO HS [facility] Last Admin: 04/25/17 02:23 Dose: Not Given Ondansetron HCl (Zofran Inj) 4 mg IVP Q4H PRN PRN Reason: Nausea/Vomiting Last Admin: 04/24/17 14:08 Dose: 4 mg Pantoprazole Sodium (Protonix Inj) 40 mg IVP DAILY [facility] Last Admin: 04/25/17 09:33 Dose: 40 mg Venlafaxine HCl (Effexor Xr) 150 mg PO DAILY [facility] Last Admin: 04/25/17 09:34 Dose: 150 mg - Labs Labs: 04/25/17 07:30 04/24/17 06:45 PT 10.9 Seconds (9.9-11.8) 04/23/17 17:57 INR 1.01 (0.93-1.08) 04/23/17 17:57 APTT 26.1 Seconds (23.7-30.8) 04/23/17 17:57 - Constitutional Appears: Well, No Acute Distress - Head Exam Head Exam: ATRAUMATIC, NORMAL INSPECTION, NORMOCEPHALIC - Eye Exam Eye Exam: EOMI, Normal appearance, PERRL. absent: Scleral icterus Pupil Exam: PERRL - ENT Exam ENT Exam: Mucous Membranes Moist - Neck Exam Neck Exam: Full ROM, Normal Inspection - Respiratory Exam Respiratory Exam: Clear to Ausculation Bilateral, NORMAL BREATHING PATTERN. absent: Decreased Breath Sounds, Rales, Rhonchi, Wheezes, Respiratory Distress - Cardiovascular Exam Cardiovascular Exam: RRR, +S1, +S2. absent: JVD - GI/Abdominal Exam GI & Abdominal Exam: Soft. absent: Distended, Firm, Guarding, Rigid, Rebound Additional comments: Mild epigastric tenderness' - Extremities Exam Extremities Exam: Normal Inspection. absent: Calf Tenderness, Pedal Edema - Neurological Exam Neurological Exam: Alert, Awake, Oriented x3 - Psychiatric Exam Psychiatric exam: Normal Affect, Normal Mood - Skin Skin Exam: Dry, Intact, Normal Color, Warm Assessment and Plan - Assessment and Plan (Free Text) Assessment: 56yo F with PMHx of idiopathic pancreatitis, hypertriglyceridemia here with acute pancreatitis 1. Acute pancreatitis clinically improving recent MRCP, endoscopic ultrasound both negative Abd US - no cholelithiasis Lipids within normal limits CT abd w/ contrast - evidence of pancreatits with peripancreatic inflammatory changes Continue IVF tolerating soft diet GI consulted, Dr. Jessica, appreciate recs Pain management Zofran prn 2. Hx of Hypothyroid continue home meds 3. Hx of Depression Continue home meds 4. PPx SCDs Protonix Discussed case with Dr. Vladimir Adames PGY1 <Yisel Gilbert - Last Filed: 04/25/17 17:08> Objective - Vital Signs/Intake and Output Vital Signs (last 24 hours): Temp Pulse Resp BP Pulse Ox 98.6 F 81 20 120/68 97 04/25/17 08:00 04/25/17 08:00 04/25/17 08:00 04/25/17 08:00 04/25/17 08:00 Intake and Output: 04/25/17 04/25/17 06:59 18:59 Intake Total 0 Balance 0 - Medications Medications: Current Medications Alprazolam (Xanax) 1 mg PO TID [facility] PRN Reason: Protocol Last Admin: 04/25/17 14:37 Dose: Not Given Hydromorphone HCl (Dilaudid) 0.5 mg IVP Q6H PRN PRN Reason: Pain, severe (8-10) Sodium Chloride (Sodium Chloride 0.9%) 1,000 mls @ 150 mls/hr IV .Q6H40M [facility] Last Admin: 04/25/17 09:00 Dose: 150 mls/hr Levothyroxine Sodium (Synthroid) 50 mcg PO DAILY [facility] Last Admin: 04/25/17 09:34 Dose: 50 mcg Temazepam [Restoril] (30 Mg (Home Med)) [address] [facility] Last Admin: 04/25/17 02:23 Dose: Not Given Ondansetron HCl (Zofran Inj) 4 mg IVP Q4H PRN PRN Reason: Nausea/Vomiting Last Admin: 04/24/17 14:08 Dose: 4 mg Oxycodone/Acetaminophen (Percocet 5/325 Mg Tab) 1 tab PO Q6H PRN PRN Reason: Pain, moderate (4-7) Stop: 04/28/17 16:48 Pantoprazole Sodium (Protonix Inj) 40 mg IVP DAILY [facility] Last Admin: 04/25/17 09:33 Dose: 40 mg Venlafaxine HCl (Effexor Xr) 150 mg PO DAILY [facility] Last Admin: 04/25/17 09:34 Dose: 150 mg - Labs Labs: 04/25/17 07:30 04/24/17 06:45 PT 10.9 Seconds (9.9-11.8) 04/23/17 17:57 INR 1.01 (0.93-1.08) 04/23/17 17:57 APTT 26.1 Seconds (23.7-30.8) 04/23/17 17:57 Attending/Attestation - Attestation I have personally seen and examined this patient.: Yes I have fully participated in the care of the patient.: Yes I have reviewed all pertinent clinical information, including history, physical exam and plan: Yes Notes (Text): 04/25/17 17:03 56 year old female with past medical history of pancreatitis and history of hypertriglyceridemia who presented with abdominal pain. She was found to have elevated lipase and admitted for acute pancreatitis. She was NPO with iv fluids and analgesics. GI is following. Her symptoms are improving and her diet was advanced. US abdomen does not show gallstones and CT abd/pelvis shows evidence of pancreatitis. Will follow up with GI recommendations. Diet was advanced today. Can likely anticipate d/c planning soon if she is tolerating diet. Yisel Gilbert MD Hospitalist.
[2017-04-25] MEDS ORDERED: Oxycodone/Acetaminophen 5/325 mg Tab PO PRN (16:47)
[2017-04-25] MEDS ORDERED: HYDROmorphone 0.5 mg/0.5 ml ISec IVP PRN (16:48)
[2017-04-25 18:04] VITALS: BP 118/80; PULSE 92; TEMP 98.8; O2SAT 98
--- NOTE | 2017-04-26 02:15 | PN ---
DATE: 04/25/2017 ADDENDUM: This is an addendum to the GI dictated by Dr. Donahue. SUBJECTIVE: The patient was seen and evaluated today. Reviewed the findings with the resident. The patient has minimal tenderness in the epigastric area. She has significant improvement. LABORATORY DATA: Requested for an ultrasound scan of the abdomen again. It shows no gallstones. CBD is normal. The patient subsequently had a pancreatic protocol CAT scan. The patient showed some mild enlargement of the pancreatic head and mild inflammatory changes. No focal pancreatic lesion noticed. . IMPRESSION: The concern is the patient has recurrent pancreatitis, had multiple workups done. The etiology is unclear. The patient would benefit from referral to a tertiary pancreatic center. This was discussed earlier with Dr. Mayer. The patient may be discharged home if she is tolerating oral intake. I did clearly explain to the patient the source of the pancreatitis is unclear, the ct scan w/pancreatic protocol was reviewed with the patient. She needs to be followed up in a pancreatic center. Thank you very much for allowing us to participate in the care of the patient. April Jessica MD cc: [id number] TT: 04/26/2017 02:15:31 Confirmation # [id number] Dictation # [id number] kishan KRUGER
--- NOTE | 2017-04-26 12:34 | CP.PCM.DIS ---
<Alejandro Adames - Last Filed: 04/26/17 12:26> Provider - Provider Date of Admission: 04/23/17 18:57 Attending physician: Canelo Mayer MD Primary care physician: Canelo Mayer MD Consults: CLARIBEL: Jaskaran Time Spent in preparation of Discharge (in minutes): 45 Hospital Course - Lab Results Lab Results: Most Recent Lab Values WBC 7.7 10^3/ul (4.5-11.0) D 04/25/17 07:30 RBC 4.17 10^6/uL (3.5-6.1) 04/25/17 07:30 Hgb 12.1 gm/dL (12.0-16.0) 04/25/17 07:30 Hct 36.8 % (36.0-48.0) 04/25/17 07:30 MCV 88.2 fL (80.0-105.0) 04/25/17 07:30 MCH 29.0 pg (25.0-35.0) 04/25/17 07:30 MCHC 32.9 g/dl (31.0-37.0) 04/25/17 07:30 RDW 13.1 % (11.5-14.5) 04/25/17 07:30 Plt Count 261 10^3/uL (120.0-450.0) 04/25/17 07:30 MPV 8.7 fl (7.0-11.0) 04/25/17 07:30 Gran % 67.1 % (50.0-68.0) 04/25/17 07:30 Lymph % (Auto) 22.2 % (22.0-35.0) 04/25/17 07:30 [place] % (Auto) 8.7 % (1.0-6.0) H 04/25/17 07:30 Eos % (Auto) 1.6 % (1.5-5.0) 04/25/17 07:30 Baso % (Auto) 0.4 % (0.0-3.0) 04/25/17 07:30 Gran # 5.17 (1.4-6.5) 04/25/17 07:30 Lymph # 1.7 (1.2-3.4) 04/25/17 07:30 Kinney # 0.7 (0.1-0.6) H 04/25/17 07:30 Eos # 0.1 (0.0-0.7) 04/25/17 07:30 Baso # 0.03 K/mm3 (0.0-2.0) 04/25/17 07:30 PT 10.9 Seconds (9.9-11.8) 04/23/17 17:57 INR 1.01 (0.93-1.08) 04/23/17 17:57 APTT 26.1 Seconds (23.7-30.8) 04/23/17 17:57 Sodium 134 mmol/L (132-148) 04/24/17 06:45 Potassium 4.1 mmol/L (3.6-5.0) 04/24/17 06:45 Chloride 103 mmol/L (95-110) 04/24/17 06:45 Carbon Dioxide 26 mmol/L (21-33) 04/24/17 06:45 Anion Gap 9 (10-20) L 04/24/17 06:45 BUN 7 mg/dL (7-21) 04/24/17 06:45 Creatinine 0.7 mg/dL (0.5-1.4) 04/24/17 06:45 Est GFR ( Amer) > 60 04/24/17 06:45 Est GFR (Non-Af Amer) > 60 04/24/17 06:45 Random Glucose 121 mg/dL (70-110) H 04/24/17 06:45 Calcium 8.6 mg/dL (8.4-10.5) 04/24/17 06:45 Total Bilirubin 0.4 mg/dL (0.2-1.3) 04/24/17 06:45 AST 22 U/L (15-39) 04/24/17 06:45 ALT 36 U/L (7-56) 04/24/17 06:45 Alkaline Phosphatase 46 U/L (38-133) 04/24/17 06:45 Total Protein 6.6 g/dL (5.8-8.3) 04/24/17 06:45 Albumin 3.7 g/dL (3.0-4.8) 04/24/17 06:45 Globulin 3.0 gm/dL 04/24/17 06:45 Albumin/Globulin Ratio 1.2 (1.1-1.8) 04/24/17 06:45 Triglycerides 99 mg/dL (35-160) 04/25/17 07:30 Cholesterol 136 mg/dL (130-200) 04/24/17 06:45 LDL Cholesterol Direct 87 mg/dL (0-129) 04/24/17 06:45 HDL Cholesterol 31 mg/dL (29-60) 04/24/17 06:45 Lipase 384 U/L (23-300) H 04/25/17 07:30 Urine Color Yellow (YELLOW) 04/23/17 17:45 Urine Appearance Clear (CLEAR) 04/23/17 17:45 Urine pH 7.5 (4.7-8.0) 04/23/17 17:45 Ur Specific [place] 1.020 (1.005-1.035) 04/23/17 17:45 Urine Protein Trace mg/dL (<30 mg/dL) H 04/23/17 17:45 Urine Glucose (UA) Negative mg/dL (NEGATIVE) 04/23/17 17:45 Urine Ketones Negative mg/dL (NEGATIVE) 04/23/17 17:45 Urine Blood Negative (NEGATIVE) 04/23/17 17:45 Urine Nitrate Negative (NEGATIVE) 04/23/17 17:45 Urine Bilirubin Negative (NEGATIVE) 04/23/17 17:45 Urine Urobilinogen 0.2 E.U./dL (<1 E.U./dL) 04/23/17 17:45 Ur Leukocyte Esterase Negative Katelyn/uL (NEGATIVE) 04/23/17 17:45 Urine RBC Negative /hpf (0-2) 04/23/17 17:45 Urine WBC 0 - 2 /hpf (0-6) 04/23/17 17:45 Ur Epithelial Cells 4 - 5 /hpf (0-5) 04/23/17 17:45 Amorphous Sediment Few 04/23/17 17:45 Urine Bacteria Many (NEG) 04/23/17 17:45 Urine Other Uyeast 04/23/17 17:45 Urine Opiates Screen Positive (NEGATIVE) H 04/24/17 12:00 Urine Methadone Screen Negative (NEGATIVE) 04/24/17 12:00 Ur Barbiturates Screen Negative (NEGATIVE) 04/24/17 12:00 Ur Phencyclidine Scrn Negative (NEGATIVE) 04/24/17 12:00 Ur Amphetamines Screen Negative (NEGATIVE) 04/24/17 12:00 U Benzodiazepines Scrn Negative (NEGATIVE) 04/24/17 12:00 U Oth Cocaine Metabols Negative (NEGATIVE) 04/24/17 12:00 U Cannabinoids Screen Negative (NEGATIVE) 04/24/17 12:00 - Hospital Course Hospital Course: Upon Admission: 56yo F with PMHx of idiopathic pancreatitis, hypertriglyceridemia here for evaluation of Abd pain. In ED, lipase was 4000. Patient was started on aggressive IVF. Patient had recent MRCP and Abd US which were both negative. Patient's status improved clinically the following day. GI consult was obtained , Abd US and Abd CT was performed. Abd US show no cholelithiasis and CT showed evidence of pancreatits. Patient began to tolerate soft oral diet. Her pain was well tolerated and she was deemed stable for discharge. She was asked to continue soft diet for the next week and advance diet slowly. As she has multiple episodes of pancreatits, GI recommends follow up with Pancreatic center as out-patient. Discussed plan in detain with the patient, who understands agrees and requests to go home. 1. Acute Pancreatitis. Improved. Percocet prn prescribed 2. Hx of Hypertriglyceridemia; wnl on labwork at this time Upon Discharge: Patient is cleared for discharge as per Dr. Gilbert and Dr. Jessica 1. Follow up with your Primary care physician within 3-4 days. 2. Stay well hydrated and low fat diet 3. Continue soft diet for the next week. Advance diet slowly. 4. Resume home meds 5. Take pain meds sparingly as ordered 6. Return to the ER with any concerning symptoms New Prescriptions Percocet 5/325mg PO q6h #8/0 Discharge Exam - Head Exam Head Exam: ATRAUMATIC, NORMAL INSPECTION, NORMOCEPHALIC - Eye Exam Eye Exam: EOMI, Normal appearance. absent: Scleral icterus Pupil Exam: PERRL - ENT Exam ENT Exam: Mucous Membranes Moist - Respiratory Exam Respiratory Exam: Clear to PA & Lateral, NORMAL BREATHING PATTERN, UNREMARKABLE. absent: Decreased Breath Sounds, Wheezes, Respiratory Distress - Cardiovascular Exam Cardiovascular Exam: RRR, +S1, +S2. absent: JVD - GI/Abdominal Exam GI & Abdominal Exam: Normal Bowel Sounds, Soft. absent: Distended, Guarding, Rebound, Rigid, Tenderness - Extremities Exam Extremities exam: normal inspection - Neurological Exam Neurological exam: Alert, Normal Gait, Oriented x3 - Psychiatric Exam Psychiatric exam: Normal Affect, Normal Mood - Skin Skin Exam: Dry, Intact, Normal Color, Warm Discharge Plan - Discharge Medications Prescriptions: oxyCODONE/Acetaminophen [Percocet 5/325 mg Tab] 1 tab PO Q8H #8 tab - Follow Up Plan Condition: FAIR Disposition: HOME/ ROUTINE Instructions: Pancreatitis (DC), Pneumococcal Vaccine for Adults (DC), Low Fat Diet (DC), At-Risk Alcohol Use (DC), Fall Prevention (DC) Additional Instructions: Patient is cleared for discharge as per Dr. Gilbert and Dr. Jessica 1. Follow up with your Primary care physician within 3-4 days. 2. Stay well hydrated and low fat diet 3. Continue soft diet for the next week. Advance diet slowly. 4. Resume home meds 5. Take pain meds sparingly as ordered 6. Return to the ER with any concerning symptoms New Prescriptions Percocet 5/325mg PO q6h #8/0 Referrals: Canelo Mayer MD [Primary Care Provider] - <Yisel Gilbert - Last Filed: 04/26/17 13:01> Provider - Provider Date of Admission: 04/23/17 18:57 Attending physician: Canelo Mayer MD Primary care physician: Canelo Mayer MD Hospital Course - Lab Results Lab Results: Most Recent Lab Values WBC 7.7 10^3/ul (4.5-11.0) D 04/25/17 07:30 RBC 4.17 10^6/uL (3.5-6.1) 04/25/17 07:30 Hgb 12.1 gm/dL (12.0-16.0) 04/25/17 07:30 Hct 36.8 % (36.0-48.0) 04/25/17 07:30 MCV 88.2 fL (80.0-105.0) 04/25/17 07:30 MCH 29.0 pg (25.0-35.0) 04/25/17 07:30 MCHC 32.9 g/dl (31.0-37.0) 04/25/17 07:30 RDW 13.1 % (11.5-14.5) 04/25/17 07:30 Plt Count 261 10^3/uL (120.0-450.0) 04/25/17 07:30 MPV 8.7 fl (7.0-11.0) 04/25/17 07:30 Gran % 67.1 % (50.0-68.0) 04/25/17 07:30 Lymph % (Auto) 22.2 % (22.0-35.0) 04/25/17 07:30 [place] % (Auto) 8.7 % (1.0-6.0) H 04/25/17 07:30 Eos % (Auto) 1.6 % (1.5-5.0) 04/25/17 07:30 Baso % (Auto) 0.4 % (0.0-3.0) 04/25/17 07:30 Gran # 5.17 (1.4-6.5) 04/25/17 07:30 Lymph # 1.7 (1.2-3.4) 04/25/17 07:30 Kin[place] # 0.7 (0.1-0.6) H 04/25/17 07:30 Eos # 0.1 (0.0-0.7) 04/25/17 07:30 Baso # 0.03 K/mm3 (0.0-2.0) 04/25/17 07:30 PT 10.9 Seconds (9.9-11.8) 04/23/17 17:57 INR 1.01 (0.93-1.08) 04/23/17 17:57 APTT 26.1 Seconds (23.7-30.8) 04/23/17 17:57 Sodium 134 mmol/L (132-148) 04/24/17 06:45 Potassium 4.1 mmol/L (3.6-5.0) 04/24/17 06:45 Chloride 103 mmol/L (95-110) 04/24/17 06:45 Carbon Dioxide 26 mmol/L (21-33) 04/24/17 06:45 Anion Gap 9 (10-20) L 04/24/17 06:45 BUN 7 mg/dL (7-21) 04/24/17 06:45 Creatinine 0.7 mg/dL (0.5-1.4) 04/24/17 06:45 Est GFR ( Amer) > 60 04/24/17 06:45 Est GFR (Non-Af Amer) > 60 04/24/17 06:45 Random Glucose 121 mg/dL (70-110) H 04/24/17 06:45 Calcium 8.6 mg/dL (8.4-10.5) 04/24/17 06:45 Total Bilirubin 0.4 mg/dL (0.2-1.3) 04/24/17 06:45 AST 22 U/L (15-39) 04/24/17 06:45 ALT 36 U/L (7-56) 04/24/17 06:45 Alkaline Phosphatase 46 U/L (38-133) 04/24/17 06:45 Total Protein 6.6 g/dL (5.8-8.3) 04/24/17 06:45 Albumin 3.7 g/dL (3.0-4.8) 04/24/17 06:45 Globulin 3.0 gm/dL 04/24/17 06:45 Albumin/Globulin Ratio 1.2 (1.1-1.8) 04/24/17 06:45 Triglycerides 99 mg/dL (35-160) 04/25/17 07:30 Cholesterol 136 mg/dL (130-200) 04/24/17 06:45 LDL Cholesterol Direct 87 mg/dL (0-129) 04/24/17 06:45 HDL Cholesterol 31 mg/dL (29-60) 04/24/17 06:45 Lipase 384 U/L (23-300) H 04/25/17 07:30 Urine Color Yellow (YELLOW) 04/23/17 17:45 Urine Appearance Clear (CLEAR) 04/23/17 17:45 Urine pH 7.5 (4.7-8.0) 04/23/17 17:45 Ur Specific [place] 1.020 (1.005-1.035) 04/23/17 17:45 Urine Protein Trace mg/dL (<30 mg/dL) H 04/23/17 17:45 Urine Glucose (UA) Negative mg/dL (NEGATIVE) 04/23/17 17:45 Urine Ketones Negative mg/dL (NEGATIVE) 04/23/17 17:45 Urine Blood Negative (NEGATIVE) 04/23/17 17:45 Urine Nitrate Negative (NEGATIVE) 04/23/17 17:45 Urine Bilirubin Negative (NEGATIVE) 04/23/17 17:45 Urine Urobilinogen 0.2 E.U./dL (<1 E.U./dL) 04/23/17 17:45 Ur Leukocyte Esterase Negative Katelyn/uL (NEGATIVE) 04/23/17 17:45 Urine RBC Negative /hpf (0-2) 04/23/17 17:45 Urine WBC 0 - 2 /hpf (0-6) 04/23/17 17:45 Ur Epithelial Cells 4 - 5 /hpf (0-5) 04/23/17 17:45 Amorphous Sediment Few 04/23/17 17:45 Urine Bacteria Many (NEG) 04/23/17 17:45 Urine Other Uyeast 04/23/17 17:45 Urine Opiates Screen Positive (NEGATIVE) H 04/24/17 12:00 Urine Methadone Screen Negative (NEGATIVE) 04/24/17 12:00 Ur Barbiturates Screen Negative (NEGATIVE) 04/24/17 12:00 Ur Phencyclidine Scrn Negative (NEGATIVE) 04/24/17 12:00 Ur Amphetamines Screen Negative (NEGATIVE) 04/24/17 12:00 U Benzodiazepines Scrn Negative (NEGATIVE) 04/24/17 12:00 U Oth Cocaine Metabols Negative (NEGATIVE) 04/24/17 12:00 U Cannabinoids Screen Negative (NEGATIVE) 04/24/17 12:00 Attending/Attestation - Attestation I have personally seen and examined this patient.: Yes I have fully participated in the care of the patient.: Yes I have reviewed all pertinent clinical information, including history, physical exam and plan: Yes Notes (Text): 04/25/17 56 year old female with past medical history of pancreatitis and history of hypertriglyceridemia who presented with abdominal pain. She was found to have elevated lipase and admitted for acute pancreatitis. Her symptoms improved with iv fluids and analgesics. Her diet was advanced which she tolerated. She was seen by GI who ordered for US abdomen and CT abd/pelvis which was reviewed as above. Overall symptoms have improved. Patient is discharged home to follow up with pmd and GI. Yisel Gilbert MD Hospitalist.
== END 2017-04-25 19:45 | disposition home or self-care (01) | DRG 440 ==
LOC: ED 16:35 → ERH 18:57 → 5RSO 21:30
PROVIDERS: ADMIT Internal Medicine; ATTEND Internal Medicine
DX: K85.90 Acute pancreatitis without necrosis or infection, unspecified (principal); K86.1 Other chronic pancreatitis; F32.9 Major depressive disorder, single episode, unspecified; E03.9 Hypothyroidism, unspecified; E78.1 Pure hyperglyceridemia; Z90.710 Acquired absence of both cervix and uterus